=== PATIENT | male | born 1945 | race Caucasian/White ===

== ENCOUNTER 2016-08-23 12:59 | Emergency (ER) | payer OTHER ==
[~2016-08-23] VITALS: Ht 182.9 cm; Wt 86.2 kg
[2016-08-23] MEDS ORDERED: FAMOTIDINE 20 MG TABLET. PO ONE (14:15)
--- NOTE | 2016-08-23 14:26 | PHYS DOC ---
Past Medical History Past Medical History: GERD, P.U.D. Past Surgical History: Cholecystectomy Additional Information: 1 PPD Alcohol Use: None Drug Use: Marijuana Adult General Chief Complaint Chief Complaint: ABDOMINAL PAIN HPI HPI Patient is a 70 year old male who presents with abdominal pain for the past 3 years. Patient states that he has generalized abdominal tenderness that has been present for the past 3 years and he has been followed the [facility] and has been scoped multiple times upper and lower and been treated for possible ulcers however they've not found an identifiable cause. Patient states [facility] and came to [facility] for second opinion. Patient states the pain is no worse today than it was yesterday however he had free time decided to come to the emergency room. Patient denies any fevers or chills. Patient denies any chest pain shortness of breath. Patient denies rectal bleeding. Patient denies any dysuria. Patient has no other complaints. Pertinent exam findings: Generalized tenderness to palpation with bowel sounds in all 4 quadrants and soft ED course: Patient was seen and evaluated a CBC, CMP, lipase, UA, CT abdomen and pelvis with contrast was ordered 1336 EKG shows normal sinus rhythm rate of 82 no STEMI 1625: Patient reevaluated and results explained and recommended patient follow- up for repeat scopes and possible second opinion from a different GI specialist. Pt is ready be discharged in stable for discharge. Pertinent results: CT: NAD MDM: After reviewing the chart, CC/HPI/PMH, physical exam, [lab results], [ radiological results], I do not believe the patient is having an intra- abdominal emergency wanting further workup and/or admission at this time. Patient is stable for discharge. Patient is comfortable being discharged. Recommended patient follow-up with PCP and GI specialists discuss further evaluation with scopes. Additional verbal discharge instructions were provided to the patient and that if symptoms get worse or any new symptoms arise that are worrisome to the patient he is to return to the emergency room immediately Review of Systems Review of Systems Constitutional: Denies fever or chills [] Eyes: Denies change in visual acuity, redness, or eye pain [] HENT: Denies nasal congestion or sore throat [] Respiratory: Denies cough or shortness of breath [] Cardiovascular: No additional information not addressed in HPI [] GI: Generalized abdominal tenderness : Denies dysuria or hematuria [] Musculoskeletal: Denies back pain or joint pain [] Integument: Denies rash or skin lesions [] Current Medications Current Medications Current Medications Medications (Trade) Dose Ordered Sig/Win Start Time Stop Time Status Last Admin Dose Admin Famotidine (Pepcid) 20 mg 1X ONCE 08/23/16 14:15 08/23/16 14:20 DC 08/23/16 15:34 20 MG Info (Do NOT chart on this entry -- for MONITORING) 1 each PRN DAILY PRN 08/23/16 14:30 08/25/16 14:29 Iohexol (Omnipaque 300 Mg/ml) 75 ml 1X ONCE 08/23/16 14:30 08/23/16 14:31 DC Allergies Allergies Allergies Coded Allergies Type Severity Reaction Last Updated Verified No Known Drug Allergies 08/23/16 No Physical Exam Physical Exam Constitutional: Well developed, well nourished, no acute distress, non-toxic appearance. [] HENT: Normocephalic, atraumatic, bilateral external ears normal, oropharynx moist, no oral exudates, nose normal. [] Eyes: PERRLA, EOMI, conjunctiva normal, no discharge. [] Neck: Normal range of motion, no tenderness, supple, no stridor. [] Cardiovascular:Heart rate regular rhythm, no murmur [] Lungs & Thorax: Bilateral breath sounds clear to auscultation [] Abdomen: Bowel sounds normal, soft, generalized abdominal tenderness, no masses , no pulsatile masses. [] Skin: Warm, dry, no erythema, no rash. [] Back: No tenderness, no CVA tenderness. [] Extremities: No tenderness, no cyanosis, no clubbing, ROM intact, no edema. [] Neurologic: Alert and oriented X 3, normal motor function, normal sensory function, no focal deficits noted. [] Psychologic: Affect normal, judgement normal, mood normal. [] Current Patient Data Vital Signs Vital Signs Date Time Temp Pulse Resp B/P (MAP) Pulse Ox O2 Delivery O2 Flow Rate FiO2 08/23/16 13:28 97.4 98 20 136/95 (109) 95 Room Air 97.4 Lab Values Laboratory Tests Test 08/23/16 13:30 08/23/16 14:33 Urine Collection Type Unknown Urine Color Yellow Urine Clarity Clear Urine pH 6.5 Urine Specific [place] 1.010 Urine Protein Negative mg/dL (NEG-TRACE) Urine Glucose (UA) Negative mg/dL (NEG) Urine Ketones (Stick) Negative mg/dL (NEG) Urine Blood Negative (NEG) Urine Nitrite Negative (NEG) Urine Bilirubin Negative (NEG) Urine Urobilinogen Dipstick 0.2 mg/dL (0.2 mg/dL) Urine Leukocyte Esterase Negative (NEG) Urine RBC Rare /HPF (0-2) Urine WBC Rare /HPF (0-4) Urine Bacteria 0 /HPF (0-FEW) White Blood Count 6.8 x10^3/uL (4.0-11.0) Red Blood Count 5.36 x10^6/uL (4.30-5.70) Hemoglobin 16.8 g/dL (13.0-17.5) Hematocrit 49.5 % (39.0-53.0) Mean Corpuscular Volume 92 fL (79-100) Mean Corpuscular Hemoglobin 31 pg (25-35) Mean Corpuscular Hemoglobin Concent 34 g/dL (31-37) Red Cell Distribution Width 13.4 % (11.5-14.5) Platelet Count 264 x10^3/uL (140-400) Neutrophils (%) (Auto) 57 % (31-73) Lymphocytes (%) (Auto) 33 % (24-48) Monocytes (%) (Auto) 8 % (0-9) Eosinophils (%) (Auto) 2 % (0-3) Basophils (%) (Auto) 1 % (0-3) Neutrophils # (Auto) 3.9 x10^3uL (1.8-7.7) Lymphocytes # (Auto) 2.2 x10^3/uL (1.0-4.8) Monocytes # (Auto) 0.6 x10^3/uL (0.0-1.1) Eosinophils # (Auto) 0.1 x10^3/uL (0.0-0.7) Basophils # (Auto) 0.1 x10^3/uL (0.0-0.2) Sodium Level 145 mmol/L (136-145) Potassium Level 4.2 mmol/L (3.5-5.1) Chloride Level 105 mmol/L (98-107) Carbon Dioxide Level 30 mmol/L (21-32) Anion Gap 10 (6-14) Blood Urea Nitrogen 12 mg/dL (8-26) Creatinine 1.1 mg/dL (0.7-1.3) Estimated GFR (Cockcroft-Gault) 66.6 BUN/Creatinine Ratio 11 (6-20) Glucose Level 112 mg/dL (70-99) H Calcium Level 10.1 mg/dL (8.5-10.1) Total Bilirubin 0.5 mg/dL (0.2-1.0) Aspartate Amino Transferase (AST) 22 U/L (15-37) Alanine Aminotransferase (ALT) 26 U/L (16-63) Alkaline Phosphatase 89 U/L (46-116) Total Protein 7.7 g/dL (6.4-8.2) Albumin 4.5 g/dL (3.4-5.0) Albumin/Globulin Ratio 1.4 (1.0-1.7) Lipase 110 U/L (73-393) Laboratory Tests 08/23/16 14:33 Laboratory Tests 08/23/16 14:33 EKG EKG [] Radiology/Procedures Radiology/Procedures CT abdomen and pelvis with contrast no acute abnormalities noted [] Course & Med Decision Making Course & Med Decision Making Pertinent Labs and Imaging studies reviewed. (See chart for details) [] Dragon Disclaimer Dragon Disclaimer This electronic medical record was generated, in whole or in part, using a voice recognition dictation system. Departure Departure Impression: Primary Impression: Abdominal pain Disposition: 01 HOME, SELF-CARE Condition: GOOD Referrals: MARIA ELENA SMITH MD (PCP) Patient Instructions: Abdominal Pain Additional Instructions: Please follow up with PCP in one to 2 days Problem Qualifiers Primary Impression: Abdominal pain Abdominal location: generalized Qualified Codes: R10.84 - Generalized abdominal pain KALA SYLVESTER DO August 23, 2016 14:26
[2016-08-23 14:27] LABS: BILIRUBIN,URINE NEGATIVE (NEG); GLUCOSE,URINE NEGATIVE (NEG); NITRITE,URINE NEGATIVE (NEG); PH,URINE 6.5; PROTEIN,URINE NEGATIVE (NEG-TRACE); UROBILINOGEN,URINE 0.2 mg/dL (0.2 mg/dL)
[2016-08-23] MEDS ORDERED: CONTRAST GIVEN MC PRN (14:30)
[2016-08-23] MEDS ORDERED: IOHEXOL 300 MG/ML 75 ML VIAL IV ONE (14:30)
[2016-08-23 14:34] LABS: RBC,URINE RARE /HPF (0-2); WBC,URINE RARE /HPF (0-4)
[2016-08-23 14:35] LABS: BACTERIA,URINE 0 /HPF (0-FEW)
[2016-08-23 14:44] LABS: BASO # 0.1 x10^3/uL (0.0-0.2); BASO % 1 % (0-3); EOS % 2 % (0-3); HEMATOCRIT 49.5 % (39.0-53.0); HEMOGLOBIN 16.8 g/dL (13.0-17.5); LYMPH # 2.2 x10^3/uL (1.0-4.8); LYMPH % 33 % (24-48); MEAN CORPUSCULAR HEMOGLOBIN 31 pg (25-35); MEAN CORPUSCULAR HGB CONC 34 g/dL (31-37); MEAN CORPUSCULAR VOLUME 92 fL (79-100); MONO % 8 % (0-9); NEUT % 57 % (31-73); PLATELET COUNT 264 x10^3/uL (140-400); RED BLOOD COUNT 5.36 x10^6/uL (4.30-5.70); RED CELL DISTRIBUTION WIDTH 13.4 % (11.5-14.5); WHITE BLOOD COUNT 6.8 x10^3/uL (4.0-11.0)
--- NOTE | 2016-08-23 14:54 | EKG ---
[facility] [address] [place] [address] Test Date: 2016-08-23 Test Time: 13:34:14 Pat Name: JONAH LANDAVERDE Department: Room: Gender: M Certified Personal Trainer: : 1945 Requested By: KALA SYLVESTER Order Number: [id number] Reading MD: Get Lundberg Measurements Intervals [place] Rate: 82 P: 70 [place]: 160 QRS: 21 QRSD: 70 T: 40 QT: 330 QTc: 388 Interpretive Statements SINUS RHYTHM Electronically Signed On 08-24-2016 10:37:29 CDT by Get Lundberg
[2016-08-23 14:57] LABS: CALCIUM 10.1 mg/dL (8.5-10.1); CREATININE 1.1 mg/dL (0.7-1.3); GFR 66.6; POTASSIUM 4.2 mmol/L (3.5-5.1)
[2016-08-23 15:03] LABS: ALBUMIN 4.5 g/dL (3.4-5.0); ALBUMIN/GLOBULIN RATIO 1.4 (1.0-1.7); TOTAL BILIRUBIN 0.5 mg/dL (0.2-1.0); TOTAL PROTEIN 7.7 g/dL (6.4-8.2)
--- NOTE | 2016-08-23 16:06 | RAD ---
CT ABD PELV W/ IV CONTRST ONLY dated 08/23/2016 3:44 PM Indication:left side abd pain omni 300 75ml
Comparison: No comparison is available. Technique: CT images were obtained without oral contrast. IV contrast was given. One or more of the following individualized dose reduction techniques were utilized for this examination: 1. Automated exposure control 2. Adjustment of the mA and/or kV according to patient size 3. Use of iterative reconstruction technique Findings: There is mild dependent atelectasis. Lung bases otherwise are clear. The liver and spleen aren't homogeneous in density and normal in configuration. Both kidneys enhance with contrast. No mass or obstruction is seen. The adrenal glands are not enlarged. The pancreas appears normal. No retroperitoneal or mesenteric adenopathy is seen. There is no apparent abdominal soft tissue mass or inflammatory process. Images through the pelvis show no abnormality of the distal ureters or bladder. No pelvic or inguinal adenopathy is seen. There is no separate pelvic mass or inflammatory process. There are no findings suggesting diverticulitis. IMPRESSION: No apparent acute abnormality. Electronically signed by: Casey Yo Jr., MD (08/23/2016 4:03 PM)
[2016-08-23 16:45] VITALS: BP 125/88
--- NOTE | 2016-08-24 07:24 | EKG ---
[facility] [address] [place] [address] Test Date: 2016-08-23 Test Time: 15:15:03 Pat Name: JONAH LANDAVERDE Department: Room: Gender: M Occupational Therapy Director: : 1945 Requested By: KALA SYLVESTER Order Number: [id number] Reading MD: Get Lundberg Measurements Intervals [place] Rate: 80 P: 142 [place]: 170 QRS: 4 QRSD: 66 T: 24 QT: 354 QTc: 412 Interpretive Statements SINUS RHYTHM QRS(T) CONTOUR ABNORMALITY CONSISTENT WITH ANTEROSEPTAL INFARCT PROBABLY OLD BASELINE ARTIFACT Electronically Signed On 08-24-2016 10:38:09 CDT by Get Lundberg
== END 2016-08-23 17:07 | disposition home or self-care (01) ==
LOC: ER 12:59
DX: R10.84 Generalized abdominal pain (principal); K21.9 Gastro-esophageal reflux disease without esophagitis; F12.10 Cannabis abuse, uncomplicated; F17.200 Nicotine dependence, unspecified, uncomplicated; Z90.49 Acquired absence of other specified parts of digestive tract; Z87.11 Personal history of peptic ulcer disease
CPT/HCPCS: 36415; 74177; 80053; 81001; 83690; 85027; 93005; 99285; Q9967

== ENCOUNTER 2017-06-22 09:14 | Emergency (ER) | payer OTHER ==
[2017-06-22 10:01] LABS: BILIRUBIN,URINE NEGATIVE (NEG); CLARITY,URINE CLEAR; COLOR,URINE YELLOW; GLUCOSE,URINE NEGATIVE (NEG); NITRITE,URINE NEGATIVE (NEG); PH,URINE 6.5; PROTEIN,URINE NEGATIVE (NEG-TRACE); UROBILINOGEN,URINE 0.2 mg/dL (0.2 mg/dL)
[2017-06-22] MEDS: MORPHINE SULFATE 10 MG/ML VIAL. IV (10:22)
[2017-06-22 10:24] LABS: ADD MAN DIFF? NO
[2017-06-22 10:27] LABS: BACTERIA,URINE 0 /HPF (0-FEW); RBC,URINE 0 /HPF (0-2); SQUAMOUS EPITHELIAL CELL,UR FEW /LPF; WBC,URINE 0 /HPF (0-4)
[2017-06-22 10:32] LABS: BASO # 0.1 x10^3/uL (0.0-0.2); BASO % 1 % (0-3); EOS # 0.3 x10^3/uL (0.0-0.7); EOS % 5 % (0-3); HEMATOCRIT 46.2 % (39.0-53.0); HEMOGLOBIN 15.9 g/dL (13.0-17.5); LYMPH # 2.3 x10^3/uL (1.0-4.8); LYMPH % 37 % (24-48); MEAN CORPUSCULAR HEMOGLOBIN 32 pg (25-35); MEAN CORPUSCULAR HGB CONC 34 g/dL (31-37); MEAN CORPUSCULAR VOLUME 92 fL (79-100); MONO # 0.6 x10^3/uL (0.0-1.1); MONO % 10 % (0-9); NEUT # 2.9 x10^3uL (1.8-7.7); NEUT % 47 % (31-73); PLATELET COUNT 246 x10^3/uL (140-400); WHITE BLOOD COUNT 6.1 x10^3/uL (4.0-11.0)
[2017-06-22 10:34] LABS: ANION GAP 11 (6-14); BLOOD UREA NITROGEN 11 mg/dL (8-26); BUN/CREATININE RATIO 12 (6-20); CARBON DIOXIDE 26 mmol/L (21-32); CHLORIDE 106 mmol/L (98-107); CREATININE 0.9 mg/dL (0.7-1.3); GFR 83.7; GLUCOSE 98 mg/dL (70-99); POTASSIUM 4.3 mmol/L (3.5-5.1); SODIUM 143 mmol/L (136-145)
[2017-06-22 10:40] LABS: ALBUMIN/GLOBULIN RATIO 1.1 (1.0-1.7); ALK PHOS 86 U/L (46-116); ALT (SGPT) 25 U/L (16-63); AST (SGOT) 21 U/L (15-37); TOTAL BILIRUBIN 0.7 mg/dL (0.2-1.0); TOTAL PROTEIN 7.7 g/dL (6.4-8.2)
[2017-06-22 10:51] LABS: D-DIMER 0.29 ug/mlFEU (0.00-0.50)
[2017-06-22] MEDS: fentaNYL PF VIAL 100 MCG/2 ML VIAL IV (11:19)
== END 2017-06-22 13:59 | disposition home or self-care (01) ==
LOC: ER 09:14
DX: R07.81 Pleurodynia (principal); K21.9 Gastro-esophageal reflux disease without esophagitis; F12.10 Cannabis abuse, uncomplicated; Z90.49 Acquired absence of other specified parts of digestive tract
CPT/HCPCS: 36415; 71046; 74176; 80053; 81001; 85025; 85379; 93005; 96374; 96375; 99285-25; J2270; J3010

== ENCOUNTER 2017-07-18 09:27 | Day surgery (SDC) | payer OTHER ==
[~2017-07-18 09:27] MED LIST: LIDOCAINE 1% PF 2 ML VIAL. ID; ONDANSETRON PF 4 MG/2 ML VIAL. IV; ceFAZolin 2GM PREMIX 2 GM/50 ML BAG IV; fentaNYL PF VIAL 100 MCG/2 ML VIAL IV
[2017-07-18] MEDS: IV RINGERS,LACTATED 1000ML 1,000 ML IV (10:05)
[2017-07-18] MEDS ORDERED: SEVOFLURANE > 120 MINUTES. IH (10:28)
[2017-07-18] MEDS ORDERED: SUCCINYLCHOLINE 200 MG/10 ML VIAL. (10:30)
[2017-07-18] MEDS ORDERED: ROCURONIUM 50 MG/5 ML VIAL. (10:30)
[2017-07-18] MEDS ORDERED: NEOSTIGMINE METHYLSULFATE 5 MG/5 ML SYRINGE. (10:31)
[2017-07-18] MEDS ORDERED: MIDAZOLAM HCL/PF 2 MG/2 ML VIAL. (10:31)
[2017-07-18] MEDS ORDERED: GLYCOPYRROLATE 1 MG/5 ML VIAL. (10:31)
[2017-07-18] MEDS ORDERED: fentaNYL PF VIAL 100 MCG/2 ML VIAL (10:31)
[2017-07-18] MEDS ORDERED: LIDOCAINE 2% PF Vial for OR 5 ML VIAL. (10:32)
[2017-07-18] MEDS ORDERED: DEXAMETHASONE SOD PHOS 20 MG/5 ML VIAL. (10:32)
[2017-07-18] MEDS ORDERED: PROPOFOL 20 ML IV (10:32)
[2017-07-18] MEDS ORDERED: ONDANSETRON PF 4 MG/2 ML VIAL. (10:32)
[2017-07-18] MEDS: BACITRACIN 50,000 UNIT in IV NORMAL SALINE 1000ML BAG 1,000 ML IRR (11:08)
[2017-07-18] MEDS ORDERED: PHENYLEPHRINE in 0.9% NACL PF 1 MG/10 ML SYRINGE. IV (11:20)
[2017-07-18] MEDS: BUPIVAC MPF-EPI 0.5%-1:200000 30 ML VIAL. INJ (11:26)
[2017-07-18] MEDS ORDERED: ePHEDrine PF IN SALINE 50 MG/5 ML DISP.SYRIN IV (11:27)
[2017-07-18] MEDS ORDERED: hydrALAZINE 20 MG/ML VIAL. (11:38)
[2017-07-18] MEDS: fentaNYL PF VIAL 100 MCG/2 ML VIAL IV ×4 (12:14→12:41)
[2017-07-18] MEDS: PROCHLORPERAZINE 10 MG/2 ML VIAL. IV (12:14)
[2017-07-18] MEDS: MORPHINE SULFATE 4 MG/ML DISP.SYRIN. IV ×7 (12:25→13:52)
[2017-07-18] MEDS ORDERED: KETOROLAC 30 MG/ML INJ. (12:51)
[2017-07-18] MEDS: KETOROLAC 30 MG/ML INJ. IV (12:54)
[2017-07-18] MEDS: MORPHINE SULFATE 2 MG/ML DISP.SYRIN. IV (13:38)
[2017-07-18] MEDS ORDERED: HYDROcodone/APAP 5/325MG 1 TAB TABLET PO (14:15)
[2017-07-18] MEDS: HYDROmorphone 2 MG TABLET PO (14:18)
== END 2017-07-18 15:20 | disposition home or self-care (01) ==
LOC: SURG 09:27
DX: K36 Other appendicitis (principal); E78.00 Pure hypercholesterolemia, unspecified; J44.9 Chronic obstructive pulmonary disease, unspecified; G47.33 Obstructive sleep apnea (adult) (pediatric); Z90.49 Acquired absence of other specified parts of digestive tract; M19.90 Unspecified osteoarthritis, unspecified site; F32.9 Major depressive disorder, single episode, unspecified; F12.90 Cannabis use, unspecified, uncomplicated; F17.210 Nicotine dependence, cigarettes, uncomplicated; Z86.19 Personal history of other infectious and parasitic diseases; Z79.899 Other long term (current) drug therapy; K58.9 Irritable bowel syndrome, unspecified; E78.5 Hyperlipidemia, unspecified; Z82.49 Family history of ischemic heart disease and other diseases of the circulatory system
CPT/HCPCS: 44970; 88304; A7015; J0330; J0360; J0690; J0780; J1100; J1885; J2250; J2270; J2370; J2405; J2704; J2710; J3010; J3490; J7030; J7120

== ENCOUNTER 2020-09-09 06:00 | Emergency (ER) | payer OTHER ==
[~2020-09-09] VITALS: Ht 180.3 cm; Wt 80.0 kg
[~2020-09-09 06:00] MED LIST changes: +ALBU2.5V8 INH; +CRAN400C PO; +DICY10CA3 PO; +GABA300C18 PO; +HYDR-3164 PO; -LIDOCAINE 1% PF 2 ML VIAL. ID; +LIPA1CAP2 PO; +MAGN400O7 PO; +MAGN400T30 PO; +MULT-445 PO; +OLOD4MIS2 IH; -ONDANSETRON PF 4 MG/2 ML VIAL. IV; +POLY17PO29 PO; +POTASSIUM PO; +PSYL575P4 PO; -ceFAZolin 2GM PREMIX 2 GM/50 ML BAG IV; -fentaNYL PF VIAL 100 MCG/2 ML VIAL IV
--- NOTE | 2020-09-09 07:09 | ED.ADGEN ---
Past Medical History Past Medical History: GERD, P.U.D. Past Surgical History: Appendectomy, Cholecystectomy Smoking Status: Current Every Day Smoker Alcohol Use: None Drug Use: Marijuana General Adult EDM: Chief Complaint: BLOODY STOOL HPI: HPI: Patient is a 74-year-old male who arrives to the emergency department complaining of the acute onset of right-sided low back pain. Patient also states he thought he did have a bowel movement and upon doing so he had bright red blood in his stool. Patient does report to intermittent problems with pelvic floor dysfunction which she was previously diagnosed. Patient describes the pain is sharp in nature in his low back and states it does not radiate. Patient does report some mild right-sided low abdominal pain as well. He denies however any chest pain or shortness of air. He further denies any genitourinary symptoms. He further says he does not have problems with bloody stool normally he does not take blood thinners. He is awake, alert and uncomfortable appearing. Review of Systems: Review of Systems: Constitutional: Denies fever or chills. [] Eyes: Denies change in visual acuity. [] HENT: Denies nasal congestion or sore throat. [] Respiratory: Denies cough or shortness of breath. [] Cardiovascular: Denies chest pain or edema. [] GI: Reports lower abdominal pain with bright red blood in his stool. Denies nausea, vomiting, or diarrhea. [] : Denies dysuria. [] Musculoskeletal: Reports right-sided low back pain. Denies joint pain. [] Integument: Denies rash. [] Neurologic: Denies headache, focal weakness or sensory changes. [] Endocrine: Denies polyuria or polydipsia. [] Lymphatic: Denies swollen glands. [] Psychiatric: Denies depression or anxiety. [] Current Medications: Current Medications Medications (Trade) Dose Ordered Sig/Win Start Time Stop Time Status Last Admin Dose Admin Info (CONTRAST GIVEN -- Rx MONITORING) 1 each PRN DAILY PRN 09/09/20 08:30 09/11/20 08:29 Iohexol (Omnipaque 300 Mg/ml) 60 ml 1X ONCE 09/09/20 08:15 09/09/20 08:16 DC 09/09/20 08:25 60 ML Morphine Sulfate (Morphine Sulfate) 4 mg PRN Q15MIN PRN 09/09/20 07:15 09/10/20 07:14 09/09/20 07:17 4 MG Ondansetron HCl (Zofran) 4 mg 1X ONCE 09/09/20 07:15 09/09/20 07:16 DC 09/09/20 07:16 4 MG Sodium Chloride 1,000 ml @ 1,000 mls/hr Q1H 09/09/20 07:15 09/09/20 08:14 DC 09/09/20 07:16 1,000 MLS/HR Allergies: Allergies: Allergies Coded Allergies Type Severity Reaction Last Updated Verified No Known Drug Allergies 07/18/17 No Physical Exam: PE: Constitutional: Uncomfortable appearing. Well developed, well nourished, no acute distress, non-toxic appearance. [] HENT: Normocephalic, atraumatic, bilateral external ears normal, oropharynx moist, no oral exudates, nose normal. [] Eyes: PERRLA, EOMI, conjunctiva normal, no discharge. [] Neck: Normal range of motion, no tenderness, supple, no stridor. [] Cardiovascular:Heart rate regular rhythm, no murmur [] Lungs & Thorax: Bilateral breath sounds clear to auscultation [] Abdomen: Bowel sounds normal, soft, no tenderness, no masses, no pulsatile masses. [] Skin: Warm, dry, no erythema, no rash. [] Back: Tenderness of right side of low back. No CVA tenderness. [] Extremities: No tenderness, no cyanosis, no clubbing, ROM intact, no edema. [] Neurologic: Alert and oriented X 3, normal motor function, normal sensory fun ction, no focal deficits noted. [] Psychologic: Affect normal, judgement normal, mood normal. [] Current Patient Data: Labs: Laboratory Tests Test 09/09/20 06:10 09/09/20 07:52 White Blood Count 8.0 x10^3/uL (4.0-11.0) Red Blood Count 4.88 x10^6/uL (4.30-5.70) Hemoglobin 15.4 g/dL (13.0-17.5) Hematocrit 44.9 % (39.0-53.0) Mean Corpuscular Volume 92 fL (79-100) Mean Corpuscular Hemoglobin 32 pg (25-35) Mean Corpuscular Hemoglobin Concent 34 g/dL (31-37) Red Cell Distribution Width 13.8 % (11.5-14.5) Platelet Count 249 x10^3/uL (140-400) Neutrophils (%) (Auto) 39 % (31-73) Lymphocytes (%) (Auto) 39 % (24-48) Monocytes (%) (Auto) 11 % (0-9) H Eosinophils (%) (Auto) 9 % (0-3) H Basophils (%) (Auto) 2 % (0-3) Neutrophils # (Auto) 3.1 x10^3/uL (1.8-7.7) Lymphocytes # (Auto) 3.1 x10^3/uL (1.0-4.8) Monocytes # (Auto) 0.9 x10^3/uL (0.0-1.1) Eosinophils # (Auto) 0.7 x10^3/uL (0.0-0.7) Basophils # (Auto) 0.2 x10^3/uL (0.0-0.2) Sodium Level 143 mmol/L (136-145) Potassium Level 4.4 mmol/L (3.5-5.1) Chloride Level 109 mmol/L (98-107) H Carbon Dioxide Level 24 mmol/L (21-32) Anion Gap 10 (6-14) Blood Urea Nitrogen 12 mg/dL (8-26) Creatinine 1.2 mg/dL (0.7-1.3) Estimated GFR (Cockcroft-Gault) 59.5 BUN/Creatinine Ratio 10 (6-20) Glucose Level 111 mg/dL (70-99) H Calcium Level 9.0 mg/dL (8.5-10.1) Total Bilirubin 0.2 mg/dL (0.2-1.0) Aspartate Amino Transferase (AST) 19 U/L (15-37) Alanine Aminotransferase (ALT) 25 U/L (16-63) Alkaline Phosphatase 98 U/L (46-116) Total Protein 7.4 g/dL (6.4-8.2) Albumin 3.9 g/dL (3.4-5.0) Albumin/Globulin Ratio 1.1 (1.0-1.7) Lipase 375 U/L (73-393) Urine Collection Type Void Urine Color Yellow Urine Clarity Clear Urine pH 5.5 (<5.0-8.0) Urine Specific [place] 1.010 (1.000-1.030) Urine Protein Negative mg/dL (NEG-TRACE) Urine Glucose (UA) Negative mg/dL (NEG) Urine Ketones (Stick) Negative mg/dL (NEG) Urine Blood Negative (NEG) Urine Nitrite Negative (NEG) Urine Bilirubin Negative (NEG) Urine Urobilinogen Dipstick 0.2 mg/dL (0.2 mg/dL) Urine Leukocyte Esterase Negative (NEG) Urine RBC 0 /HPF (0-2) Urine WBC 0 /HPF (0-4) Urine Squamous Epithelial Cells None /LPF Urine Bacteria 0 /HPF (0-FEW) Urine Mucus Slight /LPF Laboratory Tests 09/09/20 06:10 Laboratory Tests 09/09/20 06:10 Vital Signs: Vital Signs Date Time Temp Pulse Resp B/P (MAP) Pulse Ox O2 Delivery O2 Flow Rate FiO2 09/09/20 08:59 66 139/76 (97) 97 Room Air 09/09/20 07:17 18 09/09/20 06:07 97.6 97.6 EKG: EKG: [] Heart Score: C/O Chest Pain: No Risk Factors: Risk Factors: DM, Current or recent (<one month) smoker, HTN, HLP, family history of CAD, obesity. Risk Scores: Score 0 - 3: 2.5% MACE over next 6 weeks - Discharge Home Score 4 - 6: 20.3% MACE over next 6 weeks - Admit for Clinical Observation Score 7 - 10: 72.7% MACE over next 6 weeks - Early Invasive Strategies Radiology/Procedures: Radiology/Procedures: [] Impression: [facility] [address] [place], [place] [id number] IMAGING REPORT Signed PATIENT: JONAH LANDAVERDE GACCOUNT: [id number] : 1945 LOCATION: ER AGE: 74 SEX: M EXAM STATUS: REG ER ORD. PHYSICIAN: MARIELA OTRIZ DO REASON: Right-sided abdominal pain, bloody stools PROCEDURE: CT ABD PELV W/ IV CONTRST ONLY CT abdomen pelvis with contrast. HISTORY: Right-sided abdominal pain, bloody stools CT scan the abdomen pelvis was done using 60 mL Omnipaque 300 contrast. Comparis on is made with a study from May 2017. There is a small density in the right lung base without change from the old study. Subpleural density in the left lung base without change from the old study. There is no effusion. Degenerative disc disease in the lower lumbar spine. Patient's had a cholecystectomy. Bile ducts are mildly prominent, common duct is similar in appearance to the old study from July 2016. A focal liver lesion was not identified. Spleen and adrenal glands are normal. Pancreas is unremarkable. There is no mass or hydronephrosis in the kidneys. There is no aortic aneurysm. There is no retroperitoneal adenopathy. There is no free air or ascites or bowel obstruction. Density at the tip of the cecum suggests an appendectomy. There is not definite CT evidence of a colitis. IMPRESSION: 1. There is not CT evidence of a colitis or diverticulitis. 2. No bowel obstruction. 3. Mildly dilated bile ducts, previous cholecystectomy, common duct similar to the old study. 4. No other acute finding noted in the abdomen or pelvis. PQRS Compliance Statement: One or more of the following individualized dose reduction techniques were utilized for this examination: 1. Automated exposure control 2. Adjustment of the mA and/or kV according to patient size 3. Use of iterative reconstruction technique Electronically signed by: Chacho Seals MD (09/09/2020 9:05 AM) [id number] DICTATED and SIGNED BY: CHACHO SEALS MD DATE: 09/09/20 [id number] 0 Course & Med Decision Making: Course & Med Decision Making Pertinent Labs and Imaging studies reviewed. (See chart for details) Patient is awake, alert and in no acute distress. Patient is not experiencing pain at this time. After speak with the patient in great detail he has a very extensive history as a relates to gastrointestinal issues. I have informed him that with his most recent episode of bleeding that he should visit with the GI doctor of his choice and I provided him with a referral. Should he have any further episodes of bleeding, I advised him to return immediately to the emergency department. The patient understands and has agreed to do so. He is nontoxic-appearing and stable for discharge in the company of his daughter. [] Merlyn Disclaimer: Merlyn Disclaimer: This electronic medical record was generated, in whole or in part, using a voice recognition dictation system. Departure Departure Impression: Primary Impression: Abdominal pain Additional Impression: Rectal bleeding Disposition: HOME / SELF CARE / HOMELESS Condition: STABLE Referrals: MARIA ELENA SMITH MD (PCP) BETTINA TONEY MD Patient Instructions: Abdominal Pain, Rectal Bleeding Problem Qualifiers MARIELA ORTIZ DO Sep 09, 2020 07:09
[2020-09-09] MEDS ORDERED: MORPHINE SULFATE 4 MG/ML VIAL. IV/SQ PRN (07:15)
[2020-09-09] MEDS ORDERED: IV NORMAL SALINE 1000ML BAG 1,000 ML IV SCH (07:15)
[2020-09-09] MEDS ORDERED: ONDANSETRON PF 4 MG/2 ML VIAL. IVP ONE (07:15)
[2020-09-09 07:19] LABS: BASO # 0.2 x10^3/uL (0.0-0.2); BASO % 2 % (0-3); EOS # 0.7 x10^3/uL (0.0-0.7); EOS % 9 % (0-3); HEMATOCRIT 44.9 % (39.0-53.0); HEMOGLOBIN 15.4 g/dL (13.0-17.5); LYMPH # 3.1 x10^3/uL (1.0-4.8); LYMPH % 39 % (24-48); MEAN CORPUSCULAR HEMOGLOBIN 32 pg (25-35); MEAN CORPUSCULAR HGB CONC 34 g/dL (31-37); MEAN CORPUSCULAR VOLUME 92 fL (79-100); MONO # 0.9 x10^3/uL (0.0-1.1); MONO % 11 % (0-9); NEUT # 3.1 x10^3/uL (1.8-7.7); NEUT % 39 % (31-73); PLATELET COUNT 249 x10^3/uL (140-400); RED BLOOD COUNT 4.88 x10^6/uL (4.30-5.70); RED CELL DISTRIBUTION WIDTH 13.8 % (11.5-14.5)
[2020-09-09 07:32] LABS: CREATININE 1.2 mg/dL (0.7-1.3); GFR 59.5; POTASSIUM 4.4 mmol/L (3.5-5.1)
[2020-09-09 07:38] LABS: ALBUMIN 3.9 g/dL (3.4-5.0); ALBUMIN/GLOBULIN RATIO 1.1 (1.0-1.7); TOTAL BILIRUBIN 0.2 mg/dL (0.2-1.0); TOTAL PROTEIN 7.4 g/dL (6.4-8.2)
[2020-09-09 08:02] LABS: BILIRUBIN,URINE NEGATIVE (NEG); CLARITY,URINE CLEAR; COLOR,URINE YELLOW; NITRITE,URINE NEGATIVE (NEG); PH,URINE 5.5 (<5.0-8.0); PROTEIN,URINE NEGATIVE (NEG-TRACE); UROBILINOGEN,URINE 0.2 mg/dL (0.2 mg/dL)
[2020-09-09 08:14] LABS: BACTERIA,URINE 0 /HPF (0-FEW); RBC,URINE 0 /HPF (0-2); WBC,URINE 0 /HPF (0-4)
[2020-09-09] MEDS ORDERED: IOHEXOL 300 MG/ML 100ML VIAL. IV ONE (08:15)
[2020-09-09] MEDS ORDERED: CONTRAST GIVEN. MC PRN (08:30)
[2020-09-09 08:59] VITALS: BP 139/76
--- NOTE | 2020-09-09 09:07 | RAD ---
CT abdomen pelvis with contrast. HISTORY: Right-sided abdominal pain, bloody stools CT scan the abdomen pelvis was done using 60 mL Omnipaque 300 contrast. Comparison is made with a kevin dy from May 2017. There is a small density in the right lung base without change from the old study . Subpleural density in the left lung base without change from the old study. There is no effusion. D egenerative disc disease in the lower lumbar spine. Patient's had a cholecystectomy. Bile ducts are m ildly prominent, common duct is similar in appearance to the old study from July 2016. A focal liver l esion was not identified. Spleen and adrenal glands are normal. Pancreas is unremarkable. There is no mass or hydronephrosis in the kidneys. There is no aortic aneurysm. There is no retroperitoneal pancho opathy. There is no free air or ascites or bowel obstruction. Density at the tip of the cecum suggest s an appendectomy. There is not definite CT evidence of a colitis. IMPRESSION: 1. There is not CT evidence of a colitis or diverticulitis. 2. No bowel obstruction. 3. Mildly dilated bile ducts, previous cholecystectomy, common duct similar to the old study. 4. No other acute finding noted in the abdomen or pelvis. PQRS Compliance Statement: One or more of the following individualized dose reduction techniques were utilized for this examinat ion: 1. Automated exposure control 2. Adjustment of the mA and/or kV according to patient size 3. Use of iterative reconstruction technique Electronically signed by: Chacho Seals MD (09/09/2020 9:05 AM) [id number]
== END 2020-09-09 09:55 | disposition home or self-care (01) ==
LOC: ER 06:00
DX: K62.5 Hemorrhage of anus and rectum (principal); R10.31 Right lower quadrant pain; M54.5 Low back pain; K21.9 Gastro-esophageal reflux disease without esophagitis; F17.200 Nicotine dependence, unspecified, uncomplicated; Z90.89 Acquired absence of other organs; Z90.49 Acquired absence of other specified parts of digestive tract
CPT/HCPCS: 36415; 74177; 80053; 81001; 83690; 85025; 96361; 96374; 96375; 99285; J2270; J2405; J7030; Q9967